=== PATIENT | male | born 1940 | race Caucasian/White ===

== ENCOUNTER → 2023-04-28 | Day surgery (SDC) | payer MEDICARE, OTHER ==
[~2023-04-28] VITALS: Ht 170.2 cm; Wt 74.4 kg
[~2023-04-28] MED LIST: AMLO10TA55 PO; ASPI-1444 PO; ATOR20TA PO; AZIL1TAB3 PO; CLOP75TA60 PO; CeFAZolin SODIUM 1 GM VIAL IVP ONE; DEXAMETHASONE SOD PHOS 4 MG/ML VIAL IVP ONE; EZET10TA57 PO; GABA-1216 PO; GLUCAGON,HUMAN RECOMBINANT 1 MG VIAL IVP ONE; GLYCOPYRROLATE 0.2 MG/ML VIAL IM ONE; IOHEXOL 240 MG/ML 20 ML VIAL ONE; LIDOCAINE/PF 2% 5 ML VIAL IM ONE; LISI5TAB21 PO; METO25 PO; ONDANSETRON HCL 4 MG/2 ML VIAL IVP ONE; PROPOFOL 1% 20 ML VIAL IVP ONE; ROCURONIUM BROMIDE 10 MG/ML 5 ML VIAL IVP ONE; SODIUM CHLORIDE 0.9% 1,000 ML IV ONE; SODIUM CHLORIDE 0.9% 1,000 ML ONE; SUGAMMADEX SODIUM 200 MG/2 ML VIAL IVP ONE
[2023-04-28 11:14] LABS: BASOPHILS % (AUTO) 0.5 % (0.0-2.0); EOSINOPHILS % (AUTO) 8.8 % (1.0-6.0); HEMOGLOBIN 14.3 g/dL (13.5-17.5); LYMPHOCYTES # (AUTO) 1.7 K/uL (1.0-4.8); LYMPHOCYTES % (AUTO) 20.2 % (22.0-44.0); MEAN CORPUSCULAR HEMOGLOBIN 31.7 pg (26.0-34.0); MEAN CORPUSCULAR VOLUME 93 fL (80-100); MONOCYTES # (AUTO) 0.5 K/uL (0.1-1.0); MONOCYTES % (AUTO) 6.3 % (2.0-9.0); NEUTROPHILS # (AUTO) 5.4 K/uL (1.8-7.7); NEUTROPHILS % (AUTO) 64.2 % (40.0-70.0); PLATELET COUNT (AUTO) 128 K/uL (150-450)
[2023-04-28 11:28] LABS: PROTHROMBIN TIME 10.8 SEC (9.4-11.6)
[2023-04-28 11:39] LABS: ALANINE AMINOTRANSFERASE 20 U/L (12-78); ALBUMIN 3.7 g/dL (3.4-5.0); ALKALINE PHOSPHATASE 139 U/L (46-116); ANION GAP 8 mmol/L (8-16); ASPARTATE AMINOTRANSFERASE 21 U/L (15-37); BILIRUBIN,TOTAL 1.6 mg/dL (0.1-1.0); CALCIUM, TOTAL 8.8 mg/dL (8.8-10.5); CARBON DIOXIDE 26 mmol/L (22-29); CHLORIDE 104 mmol/L (98-107); CREATININE 0.92 mg/dL (0.60-1.30); GLOMERULAR FILTR. RATE CALC > 60 mL/min (>60); GLUCOSE,RANDOM 95 mg/dL (70-110); SODIUM SERUM 138 mmol/L (136-145); TOTAL PROTEIN, SERUM 7.2 g/dL (6.4-8.2)
== END | disposition still patient (30) ==
LOC: SURGERY 10:30
PROVIDERS: ATTEND Internal Medicine Gastroenterology
DX: K80.50 Calculus of bile duct without cholangitis or cholecystitis without obstruction (principal); Z46.59 Encounter for fitting and adjustment of other gastrointestinal appliance and device; I10 Essential (primary) hypertension; E78.00 Pure hypercholesterolemia, unspecified; I25.2 Old myocardial infarction; I73.9 Peripheral vascular disease, unspecified; I25.10 Atherosclerotic heart disease of native coronary artery without angina pectoris; Z79.01 Long term (current) use of anticoagulants; Z90.49 Acquired absence of other specified parts of digestive tract; Z98.890 Other specified postprocedural states; Z79.899 Other long term (current) drug therapy
CPT/HCPCS: 43264; 80053; 84484; 85025; 85610; 85730; 36415; 88300; 93005; 43275; Q9966; C1769; J2704; J0690; J1100; J1610; J3490 ×3; J2405; Q9967; J7030

== ENCOUNTER 2023-05-16 05:54 | Day surgery (SDC) | payer MEDICARE, OTHER ==
[2023-05-16] VITALS (13 sets, daily range): BP systolic 116–178; BP diastolic 53–78; PULSE 65–76
[~2023-05-16] VITALS: Ht 170.2 cm; Wt 75.9 kg
[~2023-05-16 05:54] MED LIST changes: -AZIL1TAB3 PO; -CeFAZolin SODIUM 1 GM VIAL IVP ONE; -DEXAMETHASONE SOD PHOS 4 MG/ML VIAL IVP ONE; -GABA-1216 PO; -GLUCAGON,HUMAN RECOMBINANT 1 MG VIAL IVP ONE; -GLYCOPYRROLATE 0.2 MG/ML VIAL IM ONE; -IOHEXOL 240 MG/ML 20 ML VIAL ONE; -LIDOCAINE/PF 2% 5 ML VIAL IM ONE; -ONDANSETRON HCL 4 MG/2 ML VIAL IVP ONE; -PROPOFOL 1% 20 ML VIAL IVP ONE; -ROCURONIUM BROMIDE 10 MG/ML 5 ML VIAL IVP ONE; -SUGAMMADEX SODIUM 200 MG/2 ML VIAL IVP ONE
[2023-05-16] MEDS ORDERED: ASPIRIN 81 MG CHEWABLE TABLET ONE (06:33)
[2023-05-16] MEDS ORDERED: DiphenhydrAMINE HCL 50 MG CAPSULE ONE (06:34)
[2023-05-16] MEDS ORDERED: DIAZEPAM 5 MG TABLET ONE (06:34)
[2023-05-16] MEDS ORDERED: HEPARIN SODIUM 1000 UNITS/NS 1,000 ML ONE (06:56)
[2023-05-16] MEDS ORDERED: IOHEXOL 300 MG/ML 100 ML VIAL ONE (06:56)
[2023-05-16] MEDS ORDERED: SODIUM BICARBONATE 50 MEQ/50 ML VIAL ONE (06:56)
[2023-05-16] MEDS ORDERED: LIDOCAINE/PF 1% 30 ML VIAL ONE (06:56)
[2023-05-16] MEDS ORDERED: ASPIRIN 81 MG CHEWABLE TABLET PO ONE (07:30)
[2023-05-16] MEDS ORDERED: DIAZEPAM 5 MG TABLET PO ONE (07:30)
[2023-05-16] MEDS ORDERED: DiphenhydrAMINE HCL 50 MG CAPSULE PO ONE (07:30)
[2023-05-16] MEDS ORDERED: MIDAZOLAM HCL 2 MG/2 ML VIAL ONE (07:40)
[2023-05-16] MEDS ORDERED: FentaNYL CITRATE PF 100 MCG/2 ML VIAL ONE (07:40)
[2023-05-16] MEDS ORDERED: VERAPAMIL HCL 2.5 MG/ML 2 ML VIAL ONE ×2 (07:40→08:24)
[2023-05-16] MEDS ORDERED: NITROGLYCERIN 50 MG/D5% WATER 250 ML ONE (07:40)
[2023-05-16] MEDS ORDERED: EMPA10TA3 PO (08:12)
[2023-05-16] MEDS ORDERED: CARV6 PO (08:12)
[2023-05-16] MEDS ORDERED: CHOL500013 PO (08:12)
[2023-05-16] MEDS ORDERED: DOCU-385 PO (08:12)
[2023-05-16] MEDS ORDERED: FURO20 PO (08:12)
[2023-05-16] MEDS ORDERED: NITR0.4T50 SL (08:12)
[2023-05-16] MEDS ORDERED: SACU1TAB PO (08:12)
[2023-05-16] MEDS ORDERED: APIX5TAB PO (08:12)
[2023-05-16] MEDS ORDERED: METF-1211 PO (08:12)
[2023-05-16] MEDS ORDERED: IOHEXOL 300 MG/ML 100 ML VIAL ICOR ONE (08:15)
[2023-05-16] MEDS ORDERED: MIDAZOLAM HCL 2 MG/2 ML VIAL IVP ONE ×3 (08:15→09:00)
[2023-05-16] MEDS ORDERED: LIDOCAINE 1% 30 ML/SOD BICARB 8.4% 4 ML SQ ONE (08:15)
[2023-05-16] MEDS ORDERED: FentaNYL CITRATE PF 100 MCG/2 ML VIAL IVP ONE ×3 (08:15→09:00)
[2023-05-16] MEDS ORDERED: HEPARIN SODIUM 1000 UNITS/NS 1,000 ML IARTER ONE (08:15)
[2023-05-16] MEDS ORDERED: NITROGLYCERIN/D5W 50 MG/250 ML IV BOTTLE IARTER ONE (08:30)
[2023-05-16] MEDS ORDERED: SODIUM CHLORIDE 0.9% 500 ML IV ONE (08:30)
[2023-05-16] MEDS ORDERED: HEPARIN SODIUM,PORCINE 1,000 UNITS/ML 10 ML VIAL IARTER ONE (08:30)
[2023-05-16] MEDS ORDERED: HEPARIN SODIUM,PORCINE 1,000 UNITS/ML 10 ML VIAL IVP ONE ×2 (08:45→09:00)
[2023-05-16] MEDS ORDERED: VERAPAMIL HCL 2.5 MG/ML 2 ML VIAL ICOR ONE ×2 (09:00)
[2023-05-16] MEDS ORDERED: NITROGLYCERIN/D5W 50 MG/250 ML IV BOTTLE ICOR ONE (09:00)
[2023-05-16] MEDS ORDERED: ACETAMINOPHEN 325 MG TABLET ONE (10:24)
[2023-05-16] MEDS ORDERED: ACETAMINOPHEN 325 MG TABLET PO PRN (10:30)
== END 2023-05-16 13:35 | disposition home or self-care (01) ==
LOC: CATHLAB 05:54
PROVIDERS: ATTEND Internal Medicine Interventional Cardiology
DX: I25.10 Atherosclerotic heart disease of native coronary artery without angina pectoris (principal); I10 Essential (primary) hypertension; I34.0 Nonrheumatic mitral (valve) insufficiency; E78.5 Hyperlipidemia, unspecified; Z79.899 Other long term (current) drug therapy; Z98.890 Other specified postprocedural states
CPT/HCPCS: 93005; 99152; 99153; 93460; J3010; J1644; J3490 ×4; J2250; J7030; Q9967